=== PATIENT | female | born 1950 | race Caucasian/White ===

== ENCOUNTER 2018-12-14 08:34 | Inpatient (IN) | payer MEDICARE ==
[2018-12-10 13:50] LABS: BASOPHILS % (AUTO) 0.8 % (0-1); EOSINOPHILS # (AUTO) 0.1 X10'3 (0-0.9); LYMPHOCYTES # (AUTO) 1.5 X10'3 (1.1-4.8); LYMPHOCYTES % (AUTO) 28.4 % (21-51); MEAN CORPUSCULAR HEMOGLOBIN 30.6 PG (27.0-31.0); MEAN CORPUSCULAR HGB CONC 34.1 g/dL (33.0-36.5); MEAN CORPUSCULAR VOLUME 89.7 FL (78-98); MEAN PLATELET VOLUME 6.5 FL (7.4-10.4); MONOCYTES # (AUTO) 0.5 X10'3 (0-0.9); MONOCYTES % (AUTO) 10.2 % (2-12); NEUTROPHILS % (AUTO) 58.6 % (42-75); PRE OP HEMATOCRIT 40.7 % (35.0-45.0); PRE OP HEMOGLOBIN 13.9 g/dL (12.0-16.0); PRE OP PLATELET COUNT 295 X10'3 (140-440); RED BLOOD COUNT 4.53 X10'6 (4.20-5.60); RED CELL DISTRIBUTION WIDTH 13.8 % (11.5-14.5)
[2018-12-10 13:59] LABS: ALBUMIN 3.5 G/DL (3.4-5.0); ALKALINE PHOSPHATASE 93 IU/L (46-116); BLOOD UREA NITROGEN 17 MG/DL (7-18); BUN/CREATININE RATIO 16.8 (6.6-38.0); CHLORIDE 102 MMOL/L (99-107); CREATININE 1.01 MG/DL (0.40-0.90); PRE OP ALT 33 U/L (30-65); PRE OP ANION GAP 4 (8-16); PRE OP AST 23 U/L (10-37); PRE OP BILIRUB, TOTAL 0.3 MG/DL (0.0-1.0); PRE OP GLUCOSE 93 MG/DL (70-104); PRE OP POTASSIUM 3.7 MMOL/L (3.4-5.1); PRE OP SODIUM 136 MMOL/L (135-145); TOTAL CARBON DIOXIDE 30.1 MMOL/L (24-32); eGFR 54 ML/MIN
[2018-12-10 14:32] LABS: COLOR,URINE YELLOW (Yellow); GLUCOSE, URINE NEGATIVE (Neg); KETONES,URINE NEGATIVE (Neg); LEUKOCYTE ESTERASE ,URINE TRACE (Neg); NITRITES, URINE NEGATIVE (Neg); OCCULT BLOOD,URINE SMALL (Neg); PROTEIN,URINE NEGATIVE (Neg); UROBILINOGEN,URINE 0.2 E.U/dL (0.2-1.0)
[2018-12-10 14:51] LABS: UA COLLECTION TYPE CLN CATCH MIDSTREAM
[2018-12-10 14:52] LABS: CLARITY,URINE SLIGHTLY CLOUDY (Clear)
[2018-12-10 14:57] LABS: BACTERIA,URINE NONE SEEN /HPF (Neg); SQUAMOUS EPITHELIAL CELL,UR FEW /LPF (FEW); WBC,URINE 0-4 /HPF (0-4)
[2018-12-14] VITALS (17 sets, daily range): BP systolic 100–136; BP diastolic 53–84
[~2018-12-14] VITALS: Ht 160 cm; Wt 75.3 kg
[~2018-12-14 08:34] MED LIST: ALBU18HF2 INH; ASCO500C15 PO; CALC-102 PO; CHOL100024 PO; GLUCOSAMIN; LOSA1TAB41 PO; MULT-1074 PO; OMEG1CAP2 PO; PSYL1PAC9; [UNRECOGNIZED DRUG - CODE] PO; [UNRECOGNIZED DRUG - OTHER]; acetaminophen 325mg tablet PO ONE; celeCOXIB 100mg capsule PO ONE; clindamycin-Cleocin 900mg/D5W 50 ML IV ONE; famotidine 20mg tablet PO ONE; gabapentin 300mg capsule PO ONE; oxyCODONE SR 10mg (sust. release) tab PO ONE; ringers solution, lacted 1,000 ML IV SCH; vancomycin inj 1,500 MG in normal saline 300ml IV soln IV ONE
[2018-12-14] MEDS ORDERED: cefazolin/dext.iso 2gm/100 ML IV ONE (09:42)
[2018-12-14 09:44] LABS: PARTIAL THROMBOPLASTIN TIME 30 SECONDS (22-32)
[2018-12-14] MEDS ORDERED: ceFAZolin 1000mg inj ONE ×2 (09:56→10:22)
[2018-12-14] MEDS ORDERED: tetracaine 1% (10mg/ml) pres. free inj. ONE (09:57)
[2018-12-14] MEDS ORDERED: fentaNYL/PF 50MCG/1 ML 2ML syringe ONE (10:00)
[2018-12-14] MEDS ORDERED: MIDAZolam 5mg/5ml vial ONE (10:00)
[2018-12-14] MEDS ORDERED: diphenhydrAMINE 50 mg/ml inj ONE (10:24)
[2018-12-14] MEDS ORDERED: ROPIVAcaine 0.5% (5mg/ml) 30ml vial ONE (10:42)
[2018-12-14] MEDS ORDERED: ringers solution, lacted 1,000 ML IV SCH (10:51)
[2018-12-14] MEDS ORDERED: meperidine/PF 25mg/ml syringe IV PRN ×3 (10:55)
[2018-12-14] MEDS ORDERED: ondansetron/PF 4mg/2ml inj IV PRN ×2 (10:55→12:35)
[2018-12-14] MEDS ORDERED: proCHLORperazine 10 MG/2 ml inj IV PRN (10:55)
[2018-12-14] MEDS ORDERED: morphine 4 MG/ML inj SYRINge IV PRN ×2 (10:55)
[2018-12-14] MEDS ORDERED: LIDOcaine 1%/PF 5ML 10 MG/ML VIAL ONE (12:08)
[2018-12-14] MEDS ORDERED: propofol inj 40 ML IV ONE (12:08)
[2018-12-14] MEDS ORDERED: bisacodyl 10mg suppository rectal RC PRN (12:35)
[2018-12-14] MEDS ORDERED: HYDROmorphone 1 mg/ml syringe IV PRN (12:35)
[2018-12-14] MEDS ORDERED: magnesium hydroxide 30ml (MOM) UD suspension PO PRN (12:35)
[2018-12-14] MEDS ORDERED: diphenhydrAMINE 25mg capsule PO PRN ×2 (12:35)
[2018-12-14] MEDS ORDERED: acetaminophen 325mg tablet PO PRN (12:35)
--- NOTE | 2018-12-14 12:36 | NUR ---
Received from OR via , accompanied by Anesthesiologist DR BRODY and report given by Anesthesiolgist. AWAKE AND ILDA DISCOMFORT. VITALS STABLE. DRESSING DI. RLE IN IMMOBILIZER. SENSATION JUST ABOVE THE HIPS. ZARAGOZA WITH CLEAR URINE.
[2018-12-14] MEDS ORDERED: albuterol 2.5 MG/3 ML nebule NEB PRN (12:40)
--- NOTE | 2018-12-14 13:46 | NUR ---
Report called to receiving nurse. Transferred via BED Belongings . Special Issues communicated to receiving nurse. AWAKE AND ORIENTED. VITALS STABLE. DRESSING DI. ILDA PAIN. TO [facility]THO RM [id number] AT THIS TIME.
[2018-12-14] MEDS: ceFAZolin 1GM/D5W- ADD-VANTAGE 50 ML IV SCH ×2 (15:40→23:27)
[2018-12-14] MEDS: potassium cl 20mEq in 1/2 NS 1,000 ML IV SCH ×2 (15:41→23:27)
[2018-12-14] MEDS ORDERED: warfarin 10mg tablet PO ONE (16:00)
[2018-12-14] MEDS: oxyCODONE/APAP 5-325mg tablet PO PRN ×2 (16:47→20:31)
--- NOTE | 2018-12-14 18:23 | NUR ---
report rec'd from rocky Nelson.
[2018-12-14] MEDS: sennosides 8.6mg tablet PO SCH (20:31)
[2018-12-14] MEDS: ascorbic acid 500mg tablet PO SCH (20:31)
[2018-12-15] MEDS: oxyCODONE/APAP 5-325mg tablet PO PRN ×5 (00:54→23:53)
[2018-12-15 02:00] VITALS: BP 114/54
[2018-12-15] MEDS: potassium cl 20mEq in 1/2 NS 1,000 ML IV SCH ×2 (05:18→12:32)
[2018-12-15 06:00] VITALS: BP 133/59
[2018-12-15 06:21] LABS: BASOPHILS % (AUTO) 0.3 % (0-1); EOSINOPHILS % (AUTO) 0.5 % (0-6); HEMATOCRIT 32.3 % (35.0-45.0); HEMOGLOBIN 11.3 g/dl (12.0-16.0); LYMPHOCYTES # (AUTO) 0.8 X10'3 (1.1-4.8); MEAN CORPUSCULAR HEMOGLOBIN 31.4 PG (27.0-31.0); MEAN CORPUSCULAR HGB CONC 34.9 g/dL (33.0-36.5); MEAN CORPUSCULAR VOLUME 90.1 FL (78-98); MEAN PLATELET VOLUME 6.7 FL (7.4-10.4); MONOCYTES # (AUTO) 0.6 X10'3 (0-0.9); MONOCYTES % (AUTO) 8.5 % (2-12); NEUTROPHILS # (AUTO) 5.5 X10'3 (1.8-7.7); NEUTROPHILS % (AUTO) 78.7 % (42-75); PLATELET COUNT 225 X10'3 (140-440); RED BLOOD COUNT 3.58 X10'6 (4.20-5.60)
--- NOTE | 2018-12-15 06:34 | NUR ---
REPORT GIVEN TO AURORA ROACH.
[2018-12-15] MEDS ORDERED: warfarin 5mg tablet PO ONE (07:00)
[2018-12-15 07:04] LABS: ANION GAP 8 (8-16); CHLORIDE 105 MMOL/L (99-107); POTASSIUM 4.2 MMOL/L (3.5-5.1); SODIUM 138 MMOL/L (135-145); TOTAL CARBON DIOXIDE 25.2 MMOL/L (24-32)
[2018-12-15] MEDS: HYDROchlorothiazide 12.5mg capsule PO SCH (08:21)
[2018-12-15] MEDS: multivitamins, therapeutics tablet PO SCH (08:21)
[2018-12-15] MEDS: losartan 50mg tablet PO SCH (08:21)
[2018-12-15] MEDS: ascorbic acid 500mg tablet PO SCH ×2 (08:21→20:42)
[2018-12-15 10:00] VITALS: BP 140/61
[2018-12-15] MEDS ORDERED: warfarin 10mg tablet PO ONE (10:00)
--- NOTE | 2018-12-15 14:12 | NUR ---
Joint replacement consult: Pt seen by RD for written/verbal high protein ed w/ RD contact information provided. Declines additional proteins at this time. 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 Addendum: 12/15/18 at [address] Amended: Links added.
[2018-12-15 15:48] VITALS: BP 139/69
[2018-12-15 18:00] VITALS: BP 141/55
--- NOTE | 2018-12-15 18:19 | NUR ---
report given to AURORA Law
--- NOTE | 2018-12-15 18:34 | NUR ---
REPORT REC'D FROM AURORA ROACH.
[2018-12-15] MEDS: sennosides 8.6mg tablet PO SCH (20:42)
[2018-12-15] MEDS: celeCOXIB 100mg capsule PO SCH (20:42)
[2018-12-15 22:00] VITALS: BP 137/56
[2018-12-16] MEDS: oxyCODONE/APAP 5-325mg tablet PO PRN ×2 (05:15→10:29)
--- NOTE | 2018-12-16 05:48 | NUR ---
hemovac drain d/c'd per protocol. pt tolerated well, 70 ml output.
[2018-12-16 06:00] VITALS: BP 122/57
[2018-12-16 06:11] LABS: BASOPHILS % (AUTO) 0.2 % (0-1); EOSINOPHILS # (AUTO) 0.3 X10'3 (0-0.9); EOSINOPHILS % (AUTO) 3.5 % (0-6); HEMATOCRIT 31.6 % (35.0-45.0); HEMOGLOBIN 10.8 g/dl (12.0-16.0); LYMPHOCYTES % (AUTO) 13.3 % (21-51); MEAN CORPUSCULAR HEMOGLOBIN 30.9 PG (27.0-31.0); MEAN CORPUSCULAR HGB CONC 34.2 g/dL (33.0-36.5); MEAN CORPUSCULAR VOLUME 90.4 FL (78-98); MEAN PLATELET VOLUME 6.9 FL (7.4-10.4); MONOCYTES # (AUTO) 0.8 X10'3 (0-0.9); MONOCYTES % (AUTO) 11.3 % (2-12); NEUTROPHILS # (AUTO) 5.1 X10'3 (1.8-7.7); NEUTROPHILS % (AUTO) 71.7 % (42-75); PLATELET COUNT 221 X10'3 (140-440); RED CELL DISTRIBUTION WIDTH 14.2 % (11.5-14.5); WHITE BLOOD COUNT 7.2 X10'3 (4.5-11.0)
--- NOTE | 2018-12-16 06:15 | NUR ---
Patient in room ORTHO 4021. I have received report from Ani SIMON and had the opportunity to ask questions and assume patient care.
--- NOTE | 2018-12-16 06:22 | NUR ---
REPORT GIVEN TO AURORA SIMONS.
[2018-12-16] MEDS: losartan 50mg tablet PO SCH (08:02)
[2018-12-16] MEDS: HYDROchlorothiazide 12.5mg capsule PO SCH (08:03)
[2018-12-16] MEDS: celeCOXIB 100mg capsule PO SCH (08:03)
[2018-12-16] MEDS: multivitamins, therapeutics tablet PO SCH (08:03)
[2018-12-16] MEDS: ascorbic acid 500mg tablet PO SCH (08:04)
[2018-12-16 10:00] VITALS: BP 116/57
[2018-12-16] MEDS ORDERED: warfarin 5mg tablet PO ONE (10:00)
[2018-12-16] MEDS ORDERED: acetaminophen 325mg tablet PO PRN (12:35)
--- NOTE | 2018-12-16 13:00 | NUR ---
Patient stable for discharge home today with . All instructions given to patient and and questions answered. IV out and all belongings sent with patient.
[2019-03-04] MEDS ORDERED: ATOR10TA87 PO (11:31)
[2019-03-04] MEDS ORDERED: VALA500T37 PO (11:31)
[2019-03-04] MEDS ORDERED: DIPH-689 PO (11:31)
[2019-03-04] MEDS ORDERED: ACET-1008 PO (11:32)
[2019-03-04] MEDS ORDERED: CHOL2000 PO (11:32)
== END 2018-12-16 12:55 | disposition home health service (06) | DRG 470 ==
LOC: PAS IN 08:34 → EDSTATUS 10:30 → ORTHO 4S 13:45
PROVIDERS: ADMIT Specialist; ATTEND Specialist
PROC: 0MNN0ZZ Release Right Knee Bursa and Ligament, Open Approach (ICD-10-PCS; 2018-12-14)
PROC: 3E0T3BZ Introduction of Anesthetic Agent into Peripheral Nerves and Plexi, Percutaneous Approach (ICD-10-PCS; 2018-12-14)
PROC: 0SRC0J9 Replacement of Right Knee Joint with Synthetic Substitute, Cemented, Open Approach (ICD-10-PCS; principal; 2018-12-14 09:56)
DX: M17.11 Unilateral primary osteoarthritis, right knee (principal); D62 Acute posthemorrhagic anemia; J45.909 Unspecified asthma, uncomplicated; I10 Essential (primary) hypertension; I89.0 Lymphedema, not elsewhere classified; B00.9 Herpesviral infection, unspecified; G43.909 Migraine, unspecified, not intractable, without status migrainosus; M21.061 Valgus deformity, not elsewhere classified, right knee; Z85.42 Personal history of malignant neoplasm of other parts of uterus; Z86.711 Personal history of pulmonary embolism; Z86.718 Personal history of other venous thrombosis and embolism; Z90.710 Acquired absence of both cervix and uterus; Z88.0 Allergy status to penicillin; Z79.899 Other long term (current) drug therapy
CPT/HCPCS: 36415; 73560; 80051; 80053; 81001; 82948; 85025; 85610; 85730; 87081; 87088; 94760; 97110; 97116; 97162; 97530; A4215; A6449; A6454; A7000; C1713; C1758; C1776; G0378; J0690; J1170; J1200; J2250; J2704; J2795; J3010; J3370; J3480; J3490; J7030; J7120; Q0163

== ENCOUNTER 2019-03-08 05:27 | Day surgery (SDC) | payer MEDICARE ==
[2019-03-04 11:53] LABS: BASOPHILS % (AUTO) 0.6 % (0-1); EOSINOPHILS # (AUTO) 0.1 X10'3 (0-0.9); EOSINOPHILS % (AUTO) 1.7 % (0-6); LYMPHOCYTES # (AUTO) 1.2 X10'3 (1.1-4.8); MEAN CORPUSCULAR HEMOGLOBIN 29.1 PG (27.0-31.0); MEAN CORPUSCULAR HGB CONC 32.9 g/dL (33.0-36.5); MEAN CORPUSCULAR VOLUME 88.5 FL (78-98); MEAN PLATELET VOLUME 6.5 FL (7.4-10.4); MONOCYTES # (AUTO) 0.5 X10'3 (0-0.9); MONOCYTES % (AUTO) 9.6 % (2-12); NEUTROPHILS # (AUTO) 3.3 X10'3 (1.8-7.7); NEUTROPHILS % (AUTO) 65.1 % (42-75); PRE OP HEMATOCRIT 39.9 % (35.0-45.0); PRE OP HEMOGLOBIN 13.1 g/dL (12.0-16.0); PRE OP PLATELET COUNT 282 X10'3 (140-440); RED CELL DISTRIBUTION WIDTH 15.3 % (11.5-14.5)
[2019-03-04 12:24] LABS: ALBUMIN 3.4 G/DL (3.4-5.0); ALBUMIN/GLOBULIN RATIO 0.9 (1.1-1.5); ALKALINE PHOSPHATASE 92 IU/L (46-116); BLOOD UREA NITROGEN 14 MG/DL (7-18); BUN/CREATININE RATIO 14.6 (6.6-38.0); CALCIUM 9.4 MG/DL (8.5-10.1); CHLORIDE 106 MMOL/L (99-107); CREATININE 0.96 MG/DL (0.40-0.90); PRE OP ALT 31 U/L (30-65); PRE OP ANION GAP 5 (8-16); PRE OP AST 24 U/L (10-37); PRE OP BILIRUB, TOTAL 0.4 MG/DL (0.0-1.0); PRE OP GLUCOSE 87 MG/DL (70-104); PRE OP POTASSIUM 4.1 MMOL/L (3.4-5.1); PRE OP SODIUM 143 MMOL/L (135-145); TOTAL CARBON DIOXIDE 32.1 MMOL/L (24-32); TOTAL PROTEIN 7.4 G/DL (6.4-8.2); eGFR 58 ML/MIN
[2019-03-08] VITALS (10 sets, daily range): BP systolic 130–143; BP diastolic 68–107
[~2019-03-08] VITALS: Ht 162.6 cm; Wt 73.5 kg
[~2019-03-08 05:27] MED LIST changes: +ACET-1008 PO; +ATOR10TA87 PO; +CHOL2000 PO; +DIPH-689 PO; -GLUCOSAMIN; +VALA500T37 PO; -[UNRECOGNIZED DRUG - OTHER]; -acetaminophen 325mg tablet PO ONE; -celeCOXIB 100mg capsule PO ONE; -clindamycin-Cleocin 900mg/D5W 50 ML IV ONE; -famotidine 20mg tablet PO ONE; -gabapentin 300mg capsule PO ONE; -oxyCODONE SR 10mg (sust. release) tab PO ONE; -ringers solution, lacted 1,000 ML IV SCH; -vancomycin inj 1,500 MG in normal saline 300ml IV soln IV ONE
[2019-03-08] MEDS ORDERED: clindamycin-Cleocin 900mg/D5W 50 ML IV ONE (05:30)
[2019-03-08] MEDS ORDERED: ringers solution, lacted 1,000 ML IV SCH ×2 (05:30→07:33)
[2019-03-08] MEDS ORDERED: famotidine 20mg tablet PO ONE (05:30)
[2019-03-08] MEDS ORDERED: LIDOcaine 1% (10mg/ml) 2ml vial ONE (05:50)
[2019-03-08 06:53] LABS: PRE OP PROTIME 10.6 SECONDS (9.0-12.0)
[2019-03-08] MEDS ORDERED: COU7.5T PO (07:01)
[2019-03-08] MEDS ORDERED: fentaNYL/PF 50MCG/1 ML 2ML syringe ONE (07:04)
[2019-03-08] MEDS ORDERED: midazolam 2 mg/2 ml injection ONE (07:04)
--- NOTE | 2019-03-08 07:30 | NUR ---
Received from OR via BED, accompanied by Anesthesiologist DR BRODY and report given by Anesthesiolgist. PATIENT A&OX4, DENIES PAIN, V/S WNL, NEUROVASCULAR CHECKS INTACT, 20G PIV LUE, SCD ON, RIGHT KNEE ELEVATED WITH ICEBAG APPLIED. NO DRESSINGS PRESENT
[2019-03-08] MEDS ORDERED: ondansetron/PF 4mg/2ml inj IV PRN (07:35)
[2019-03-08] MEDS ORDERED: morphine 4 MG/ML inj SYRINge IV PRN ×2 (07:35)
[2019-03-08] MEDS ORDERED: proCHLORperazine 10 MG/2 ml inj IV PRN (07:35)
[2019-03-08] MEDS ORDERED: meperidine/PF 25mg/ml syringe IV PRN ×3 (07:35)
[2019-03-08] MEDS ORDERED: acetaminophen 1,000mg/100ml IV 100 ML IV ONE (07:45)
[2019-03-08] MEDS ORDERED: LIDOcaine 2% (20mg/ml) 5ml vial ONE (07:53)
[2019-03-08] MEDS ORDERED: propofol inj 20 ML IV ONE (07:53)
--- NOTE | 2019-03-08 08:50 | NUR ---
PATIENT A&OX4, DENIES PAIN, V/S WNL, NEUROVASCULAR CHECKS INTACT, 20G PIV LUE D/C, SCD OFF, RIGHT KNEE WITH ICEBAG . NO DRESSINGS PRESENT. I HAVE REVIEWED D/C INSTRUCTIONS WITH PATIENT AND FAMILY AND THEY HAVE VERBALIZED UNDERSTANDING. PATIENT D/C WITH ALL BELONGINGS AND GAVE TRANSPORT.
== END 2019-03-08 08:50 | disposition home or self-care (01) ==
LOC: PAS 05:27
PROVIDERS: ATTEND Specialist
DX: T84.82XA Fibrosis due to internal orthopedic prosthetic devices, implants and grafts, initial encounter (principal); J45.909 Unspecified asthma, uncomplicated; I10 Essential (primary) hypertension; Z79.01 Long term (current) use of anticoagulants; Z79.899 Other long term (current) drug therapy; Z86.718 Personal history of other venous thrombosis and embolism; Z86.711 Personal history of pulmonary embolism; Z90.710 Acquired absence of both cervix and uterus; Z88.0 Allergy status to penicillin; Z91.041 Radiographic dye allergy status; Y83.8 Other surgical procedures as the cause of abnormal reaction of the patient, or of later complication, without mention of misadventure at the time of the procedure
CPT/HCPCS: 27570; 36415; 80053; 82948; 85025; 85610; 85730; J0131; J2001; J2175; J2250; J2704; J3010; A4618; J3490; J7120

== ENCOUNTER 2023-01-23 12:32 | Emergency (ER) | payer MEDICARE ==
[~2023-01-23] VITALS: Ht 165.1 cm; Wt 63.6 kg
[~2023-01-23 12:32] MED LIST changes: -ACET-1008 PO; -ASCO500C15 PO; +ASCO500C18 PO; -CHOL2000 PO; -PSYL1PAC9; +PSYL1PAC9 PO; -VALA500T37 PO; +VALA500T41 PO
[2023-01-23 13:13] LABS: BASOPHILS % (AUTO) 0 % (0-1); EOSINOPHILS # (AUTO) 0.3 X10'3 (0-0.9); EOSINOPHILS % (AUTO) 3.3 % (0-6); HEMATOCRIT 41.9 % (35.0-45.0); HEMOGLOBIN 14.4 g/dl (12.0-16.0); LYMPHOCYTES % (AUTO) 9.3 % (21-51); MEAN CORPUSCULAR HEMOGLOBIN 30.4 PG (27.0-31.0); MEAN CORPUSCULAR HGB CONC 34.5 g/dL (33.0-36.5); MEAN CORPUSCULAR VOLUME 88.3 FL (78-98); MEAN PLATELET VOLUME 6.6 FL (7.4-10.4); MONOCYTES # (AUTO) 1.3 X10'3 (0-0.9); MONOCYTES % (AUTO) 12.4 % (2-12); NEUTROPHILS # (AUTO) 7.7 X10'3 (1.8-7.7); PLATELET COUNT 448 X10'3 (140-440); RED BLOOD COUNT 4.74 X10'6 (4.20-5.60); RED CELL DISTRIBUTION WIDTH 14.1 % (11.5-14.5); WHITE BLOOD COUNT 10.2 X10'3 (4.5-11.0)
[2023-01-23 13:25] LABS: ALANINE AMINOTRANSFERASE 16 U/L (12-78); ALBUMIN 3.4 G/DL (3.4-5.0); ALBUMIN/GLOBULIN RATIO 0.9 (1.1-1.5); ALKALINE PHOSPHATASE 98 IU/L (46-116); ANION GAP 8 (8-16); ASPARTATE AMINO TRANSFERASE 15 U/L (10-37); BILIRUBIN,TOTAL 0.4 MG/DL (0.1-1.0); BLOOD UREA NITROGEN 22 MG/DL (7-18); BUN/CREATININE RATIO 18.8 (10.0-20.0); CALCIUM 9.5 MG/DL (8.5-10.1); CHLORIDE 102 MMOL/L (99-107); CREATININE 1.17 MG/DL (0.40-0.90); GLUCOSE 121 MG/DL (70-104); LIPASE 514 U/L (73-393); POTASSIUM 3.3 MMOL/L (3.5-5.1); SODIUM 136 MMOL/L (135-145); TOTAL CARBON DIOXIDE 25.7 MMOL/L (24-32); TOTAL PROTEIN 7.2 G/DL (6.4-8.2); eCRCL 39 ML/MIN; eGFR 45 ML/MIN
[2023-01-23] MEDS ORDERED: ondansetron/PF 4mg/2ml inj IV ONE (18:30)
[2023-01-23] MEDS ORDERED: morphine 4 MG/ML inj SYRINge IV ONE (18:30)
[2023-01-23 20:54] VITALS: BP 131/79; PULSE 90; RESP 14; TEMP 97.7; O2SAT 98
== END 2023-01-23 20:58 | disposition home or self-care (01) ==
LOC: ER 12:33
DX: R19.7 Diarrhea, unspecified (principal); R53.1 Weakness; R42 Dizziness and giddiness; Z88.0 Allergy status to penicillin; Z79.899 Other long term (current) drug therapy
CPT/HCPCS: 36415; 74176; 80053; 83690; 85025; 96374; 99285; J2405

== ENCOUNTER 2024-04-12 10:08 | Outpatient (CLI) | payer OTHER | END 2024-04-12 23:59 | disposition home or self-care (01) | LOC: MRI 10:08 | PROVIDERS: ATTEND Physician Assistant | DX: R90.82 White matter disease, unspecified (principal); R41.3 Other amnesia; J32.0 Chronic maxillary sinusitis | CPT/HCPCS: 70551 ==